=== PATIENT | female | born 1950 | race Hispanic/Latino ===

== ENCOUNTER → 2018-12-28 | Outpatient (CLI) | payer OTHER ==
[~2018-12-28] MED LIST: CHOL500050 PO; PYRI60TA PO; TRAM50TA4 PO
== END | disposition home or self-care (01) ==
LOC: OIH 13:06
PROVIDERS: ATTEND Neurological Surgery
DX: M47.816 Spondylosis without myelopathy or radiculopathy, lumbar region (principal); M43.16 Spondylolisthesis, lumbar region; M48.061 Spinal stenosis, lumbar region without neurogenic claudication; M85.88 Other specified disorders of bone density and structure, other site; M25.78 Osteophyte, vertebrae
CPT/HCPCS: 72100

== ENCOUNTER → 2019-03-02 | Outpatient (CLI) | payer OTHER | END | disposition home or self-care (01) | LOC: RAH 10:38 | PROVIDERS: ATTEND Neurological Surgery | DX: M47.812 Spondylosis without myelopathy or radiculopathy, cervical region (principal); M48.02 Spinal stenosis, cervical region; M25.78 Osteophyte, vertebrae | CPT/HCPCS: 72141 ==

== ENCOUNTER 2019-03-18 08:00 | Observation (INO) | payer OTHER ==
[~2019-03-18] VITALS: Ht 162.6 cm; Wt 82.6 kg
[~2019-03-18 08:00] MED LIST changes: -CHOL500050 PO; -TRAM50TA4 PO
[2019-03-18 11:30] LABS: BASOPHILS % (AUTO) 1.7 % (0.0-5.0); EOSINOPHILS % (AUTO) 2.2 % (0.0-8.0); HEMATOCRIT 37.9 % (36-48); LYMPHOCYTES % (AUTO) 23.9 % (21.0-51.0); MEAN CORPUSCULAR HEMOGLOBIN 29.3 pg (27.0-33.0); MEAN CORPUSCULAR HGB CONC 33.2 g/dL (32.0-36.0); MEAN CORPUSCULAR VOLUME 88.4 fL (79-99); MONOCYTES % (AUTO) 8.5 % (3.0-13.0); NEUTROPHILS % (AUTO) 63.7 % (40.0-77.0); NUCLEATED RED BLOOD CELLS 0.1 % (0.0-0.19); PLATELET COUNT (AUTO) 234 K/uL (130-400); RED BLOOD CELL COUNT(AUTO) 4.29 MIL/uL (4.00-5.50); RED CELL DISTRIBUTION WIDTH 12.7 % (11.0-15.5); WHITE BLOOD COUNT (AUTO) 5.9 K/uL (4.8-10.8)
[2019-03-18 11:42] LABS: CREATININE 0.7 mg/dL (0.5-1.5)
[2019-03-18 11:45] VITALS: BP 138/65
[2019-03-18] MEDS ORDERED: AZAT50TA PO (12:19)
[2019-03-22] VITALS (21 sets, daily range): BP systolic 100–133; BP diastolic 43–80
[2019-03-22] MEDS ORDERED: LACTATED RINGERS 1000ML 1,000 ML IV ONE (06:14)
[2019-03-22] MEDS ORDERED: BUPIVACAINE/EPI/PF 0.25% 30ML VIAL IJ ONE (06:38)
[2019-03-22] MEDS ORDERED: THROMBIN-JMI 5000 UNIT/VIAL TP ONE (06:39)
[2019-03-22] MEDS ORDERED: BACITRACIN 50,000 UNIT VIAL ONE (06:39)
[2019-03-22] MEDS ORDERED: VANCOMYCIN 1GM+NS 250ML 250 ML IV ONE ×2 (06:51→16:05)
[2019-03-22] MEDS ORDERED: VANCOMYCIN 1GM+NS 250ML 250 ML IV SCH ×2 (07:15→19:00)
[2019-03-22] MEDS ORDERED: PHENYLEPHRINE HCL 10 MG/ML 1ML VIAL IV ONE (07:50)
[2019-03-22] MEDS ORDERED: LIDOCAINE PF 2% 5ML ABBOJECT ONE (07:50)
[2019-03-22] MEDS ORDERED: PROPOFOL 10 MG/ML 20ML VIAL IV ONE ×2 (07:50→08:41)
[2019-03-22] MEDS ORDERED: FENTANYL CITRATE PF 50 MCG/1 ML 2ML VIAL ONE (07:51)
[2019-03-22] MEDS ORDERED: CEFAZOLIN SODIUM 1 GM VIAL IVP ONE (08:00)
[2019-03-22] MEDS ORDERED: MANNITOL 20% 500ML BAG 500 ML IV ONE (08:05)
[2019-03-22] MEDS ORDERED: EPHEDRINE SULFATE 50 MG/ML AMPULE ONE (08:46)
[2019-03-22] MEDS ORDERED: GLYCOPYRROLATE 1 MG/5 ML SYRINGE ONE (08:49)
[2019-03-22] MEDS ORDERED: LIDOCAINE HCL-MPF 1% 5ML AMP IJ ONE (10:38)
[2019-03-22] MEDS ORDERED: ONDANSETRON HCL 4 MG/2 ML VIAL ONE (10:39)
[2019-03-22] MEDS ORDERED: SODIUM CHLORIDE 0.9% 10 ML VIAL IVP PRN (11:00)
[2019-03-22] MEDS ORDERED: MORPHINE SULFATE 2 MG/ML 1ML SYG IVP PRN (11:00)
[2019-03-22] MEDS: DEXAMETHASONE SOD PHOSPHATE 4 MG/ML 1ML VIAL IVP SCH ×3 (11:00→22:53)
[2019-03-22] MEDS ORDERED: PROMETHAZINE HCL 25 MG/ML 1ML AMPULE IM PRN (11:00)
[2019-03-22] MEDS: LACTATED RINGERS 1000ML 1,000 ML IV SCH (12:15)
[2019-03-22] MEDS: PYRIDOSTIGMINE BROMIDE 60 MG TABLET PO SCH ×2 (14:26→20:58)
[2019-03-22] MEDS: HYDROCODONE/ACETAMINOPHEN 5/325 MG TAB PO PRN ×2 (14:26→19:35)
[2019-03-22] MEDS: AZATHIOPRINE 50 MG TAB PO SCH (20:58)
[2019-03-22] MEDS ORDERED: VANCOMYCIN 500MG+NS 100 ML IV SCH (21:00)
[2019-03-23] MEDS: LACTATED RINGERS 1000ML 1,000 ML IV SCH (00:18)
[2019-03-23] MEDS: HYDROCODONE/ACETAMINOPHEN 5/325 MG TAB PO PRN ×3 (01:09→09:17)
[2019-03-23 04:00] VITALS: BP 123/54
[2019-03-23] MEDS: DEXAMETHASONE SOD PHOSPHATE 4 MG/ML 1ML VIAL IVP SCH (05:17)
[2019-03-23 08:07] VITALS: BP 120/60
[2019-03-23] MEDS: PYRIDOSTIGMINE BROMIDE 60 MG TABLET PO SCH (09:00)
[2019-03-23] MEDS: AZATHIOPRINE 50 MG TAB PO SCH (09:00)
== END 2019-03-23 11:45 | disposition home or self-care (01) ==
LOC: EDSTATUS 10:00 → DAHIP 03-22 05:38 → EDSTATUS 03-22 10:00 → 4AH 03-22 11:34
PROVIDERS: ADMIT Neurological Surgery; ATTEND Neurological Surgery
DX: M48.02 Spinal stenosis, cervical region (principal); M48.061 Spinal stenosis, lumbar region without neurogenic claudication; V83.9XXA Unspecified occupant of special industrial vehicle injured in nontraffic accident, initial encounter; Y93.89 Activity, other specified; Y92.89 Other specified places as the place of occurrence of the external cause
CPT/HCPCS: 22551; 22845; 36415; 72020; 80048; 85025; 96365; 96366; 96375; 96376 ×2; A4215; A4221; A4223; A4344; A4649 ×2; A4663; A6010; A6260; C1776; G0378 ×27; J1100 ×3; J2001; J2370; J2405; J2704 ×2; J3010; J3370 ×2; J3490 ×6; J7120 ×3; J7500

== ENCOUNTER → 2019-04-25 | Outpatient (CLI) | payer OTHER ==
[~2019-04-25] MED LIST changes: +AZAT50TA PO
== END | disposition home or self-care (01) ==
LOC: OIH 07:55
PROVIDERS: ATTEND Neurological Surgery
DX: M47.812 Spondylosis without myelopathy or radiculopathy, cervical region (principal); M43.22 Fusion of spine, cervical region; Z98.1 Arthrodesis status
CPT/HCPCS: 72040

== ENCOUNTER → 2020-10-11 | Outpatient (CLI) | payer MEDICARE | END | disposition home or self-care (01) | LOC: OIH 10:58 | PROVIDERS: ATTEND Neurological Surgery | DX: M48.02 Spinal stenosis, cervical region (principal); M48.07 Spinal stenosis, lumbosacral region; M41.86 Other forms of scoliosis, lumbar region; Z98.1 Arthrodesis status | CPT/HCPCS: 72040; 72100 ==

== ENCOUNTER → 2022-09-15 | Outpatient (CLI) | payer MEDICARE | END | disposition home or self-care (01) | LOC: RAH 09:48 | PROVIDERS: ATTEND Neurological Surgery | DX: M47.812 Spondylosis without myelopathy or radiculopathy, cervical region (principal); M43.22 Fusion of spine, cervical region; Z98.1 Arthrodesis status | CPT/HCPCS: 72040 ==